=== PATIENT | female | born 1960 | race Caucasian/White ===

== ENCOUNTER 2019-06-04 12:15 | Day surgery (SDC) | payer OTHER, MEDICARE, SELFPAY ==
[2019-06-04 12:28] VITALS: BP 136/74; PULSE 88; RESP 16; TEMP 36.5; O2SAT 100; BMI 21.6
[2019-06-04] MEDS: Lactated Ringers 1,000 ML 100 ML IV (12:37)
--- NOTE | 2019-06-04 13:40 | PCM.DC.URO ---
Discharge Diet: Light diet - advance as tolerated Discharge Activity: Return to Normal Activity Call your doctor if you observe: Fever of 101 or Higher Suture Line Care: Avoid Pulling/Pushing, Avoid Pinching/Bending Allergies/Adverse Reactions: Allergies morphine Allergy (Verified 06/04/19 12:16) Hives Medications to take at Discharge Botox 40 unit SQ X1 06/03/19 Buprenorphine 20 Mcg/Hr [Butrans 20 Mcg/Hr] 1 ea TOPICAL QWEEK 06/03/19 Cyclobenzaprine HCl 10 mg PO BID PRN 06/03/19 Fremanezumab-Vfrm [Ajovy] 225 mg SQ X1 06/03/19 Ibuprofen [Advil] 200 mg PO PRN PRN 06/03/19 Ketorolac Tromethamine [Sprix] 1 ea NS PRN PRN 06/03/19 Naloxegol Oxalate [Movantik] 12.5 mg PO DAILY 06/03/19 Topiramate [Topamax] 200 mg PO BID 06/03/19 Ciprofloxacin [Cipro] 500 mg PO BID #6 tab 06/04/19 Hydrocodone/Acetaminophen [[place] 5-325 Tablet] 1 each PO Q4H PRN PRN 5 Days #14 tablet 06/04/19 The following prescriptions were given: Ciprofloxacin [Cipro] 500 mg PO BID #6 tab Transmission Status: Pending to [address] Hydrocodone/Acetaminophen [[place] 5-325 Tablet] 1 each PO Q4H PRN PRN 5 Days #14 tablet PRN Reason: Pain Score 1-10/10 Transmission Status: Received by [address] Primary Care Physician: Evelyn Gallardo DO [Primary Care Provider] - Test Results: Test results from this visit will be discussed in further detail at your follow-up appointment, if applicable. Please Follow Up With: Nacho Pop MD When: please call to make an appointment.
[2019-06-04] MEDS: Cefazolin 2 GM in 0.9% Normal Saline 100 ML IV (13:47)
--- NOTE | 2019-06-04 13:48 | OP.PCM_ITS ---
Problem List (1) Left obstructing ureteral calculi Status: Acute Report of Operation Date of Procedure: 06/04/19 Pre-Operative Diagnosis: Left obstructing ureteral calculi Post-Operative Diagnosis: Same Surgery/Procedure Performed:: Cystoscopy, retrograde pyelogram, interpretation fluoroscopic images, balloon dilation of left ureter, ureteroscopy laser of stone and stent. Description of Surgical Findings:: Patient presented to the hospital for treatment of a calculus 5 millimeters in size in the left ureter. We discussed how the procedure is done what to expect afterwards he probably will need a stent. We discussed the discomfort that the stent would cause, burning with urination, frequency, urgency, pain in the kidney, blood in the urine. We also discussed the risk of the procedure including bleeding and infection and the risk of anesthesia. We discussed the very rare risk of injury or scar tissue development in the ureter after this procedure. We also discussed the possibility that the stone would not be able to be treated completely and he may need multiple procedures. Patient was offered a course of conservative management however she called back to the office with having severe pain and wished to proceed with surgery. After discussion with the patient in the preoperative area also I saw the patient in the office discussing the same outcomes the patient signed the consent form, and all the patient's questions were answered. The patient was taken back to the operating room after smooth induction of general anesthesia and the patient was placed supine on the table. We then repositioned the patient in dorsolithotomy position with the legs in stirrups. We made sure all his pressure points were padded. The patient had SCDs on for DVT prophylaxis and was loaded with IV antibiotics prior to the procedure. Imaging was reviewed from outside hospital. I went into the bladder with a 21 Armenian rigid cystoscopy ureteroscopy after gentle dilation of the urethra. The urethra findings were normal . Inside the bladder the trigone was inspected left and right velasquez of the bladder and posterior and dome of the bladder was inspected and the main findings in the bladder was . I then cannulated the ureter and used a wire to go up to the ureter then over the wire I performed balloon dilation of the distal ureter with a ureteral balloon dilator, the balloon dilator size was 12 Armenian . I then left the wire in place and next to wire I went up with a ureteroscope. I was able to reach the stone successfully and then lasered the stone using a laser fiber and perform laser lithotripsy on the stone until the stone broke up into tiny fragments. After successful complete lasering of the stone and its fragments then I worked my way out of the ureter and over the wire I then loaded up a stent and advanced a stent up into the kidney. A retrograde pyelogram was then performed looking at the contrast images to assist in placement of the stent next and confirmed the location of the kidney and the ureter I then pulled on the wire and the stent coiled in the kidney and bladder in good position. I then drained the bladder with the cystoscope the patient's anesthetic was reversed he will be given pain medicine antibiotics and instructions to call the office for an appointment to remove the stent. Patient's anesthetic is being reversed and is taken back to the PACU in stable condition. Type of Anesthesia:: General Drains: Left stent - Admit VTE Documentation VTE Present on Admission: No VTE Mechan Device Prophylaxis: SCD's
[2019-06-04 14:30] VITALS: BP 124/81; BP 136/74; PULSE 96; RESP 16; TEMP 36.3; O2SAT 99
[2019-06-04 14:45] VITALS: BP 123/67; BP 136/74; PULSE 78; RESP 16; O2SAT 96
[2019-06-04] MEDS: Ketorolac 15 MG/ML Vial IV (14:58)
[2019-06-04 15:00] VITALS: BP 128/78; BP 136/74; PULSE 79; RESP 16; O2SAT 100
[2019-06-04 15:15] VITALS: BP 122/80; BP 136/74; PULSE 81; RESP 16; TEMP 36.4; O2SAT 100
[2019-06-04 16:16] VITALS: BP 136/74
== END 2019-06-04 16:19 | disposition home or self-care (01) ==
LOC: SDC 12:16 → AC 12:16
PROVIDERS: PCP Internal Medicine; Referring Provider Urology; Visit Provider Urology
PROC: 0TJ98ZZ Inspection of Ureter, Via Natural or Artificial Opening Endoscopic (ICD-10-PCS; CPT 52352; principal; 2019-06-04 13:50)
DX: N20.1 Calculus of ureter (principal); Z87.442 Personal history of urinary calculi; G43.909 Migraine, unspecified, not intractable, without status migrainosus
CPT/HCPCS: 52356; 76000; J7120; C1726; C1769; C2617; J2405

== ENCOUNTER 2020-10-12 11:00 | Outpatient (RCR) | payer SELFPAY ==
--- NOTE | 2021-02-22 12:52 | HP.PT.NRP ---
MARSHAL Arash COREA was seen in my office for initial evaluation on . The following Plan of Care was established for this patient: This patient was last seen in our office 10/12/20. Pertinent comments regarding their Physical therapy will appear below: Pt. was seen in PT for self pay DN for her chronic head aches. Pt. has not been seen in several months and will be DC from PT at this point in time. At this point I will be discontinuing this patient from physical therapy. I would be happy to see this patient again in the future if found appropriate by the physician. Thank you! Joshua Tan, ELDERT
== END 2020-10-12 19:00 | disposition home or self-care (01) ==
LOC: PT 11:00
PROVIDERS: PCP Internal Medicine; Referring Provider Nurse Practitioner Family; Visit Provider Nurse Practitioner Family
DX: R51.9 Headache, unspecified (principal)

== ENCOUNTER 2020-11-11 06:05 | Day surgery (SDC) | payer OTHER, MEDICARE, SELFPAY ==
[2020-11-11] VITALS (8 sets, daily range): BP systolic 110–129; BP diastolic 66–82; PULSE 77–96; RESP 16; TEMP 35.9–37.2; O2SAT 92–97; BMI 22.5
[2020-11-11] MEDS: Lactated Ringers 1,000 ML 100 ML IV ×2 (06:51→08:33)
[2020-11-11 06:53] LABS: Hematocrit 44.2 % (37-47); Hemoglobin 14.1 g/dL (12.0-15.0); Mean Corp Hgb Conc 31.9 g/dL (32-36); Mean Corpuscular Volume 90.9 fL (81-99); Mean Platelet Vol. 11.2 fl (6.2-12.0); Platelet Count 211 K/mm3 (150-450); RBC Distribution Width CV 13.6 % (11.6-14.6); RBC Distribution Width SD 46.4 fl (35.1-43.9); Red Blood Count 4.86 M/mm3 (4.2-5.4); White Blood Count 3.9 K/mm3 (4.4-11.0)
[2020-11-11 07:06] LABS: Anion Gap 6 (5-15); BUN 20 mg/dL (7-18); BUN/Creat Ratio 21.8 RATIO (10-20); Calcium,Total 9.3 mg/dL (8.5-10.1); Chloride 106 mmol/L (98-107); Creatinine, Serum 0.92 mg/dL (0.55-1.02); EST Glomerular Filtration Rate 67 mL/min (>60); Est Glom Filt Rate - Afr Amer 81 mL/min (>60); Estimated Creatinine Clearance 68.06 ml/min; Glucose 102 mg/dL (74-106); Potassium 3.8 mmol/L (3.5-5.1); Sodium Level 140 mmol/L (136-145)
--- NOTE | 2020-11-11 07:34 | HP.PCM_ITS ---
HPI - General HPI Narrative MARSHAL COREA, is a 59 F who presents for management of right ureteral stone and pain. [facility] Medical History (Updated 11/11/20 @ 07:[address] Brenda Hdez MD) Anxiety Depression Excessive bleeding History of edema History of ulceration Injury of head and neck Kidney stones Leg cramps Migraine headache Right ureteral calculus Wears contact lenses Wears dentures Wears glasses Home Medications Botox 40 unit SQ .Q3 MONTHS 06/03/19 [History Last Taken Unknown] buprenorphine 1 ea TOPICAL QWEEK 06/03/19 [History Last Taken Unknown] cyclobenzaprine 10 mg PO BID PRN 06/03/19 [History Last Taken Unknown] fremanezumab-vfrm 225 mg SQ QMONTH 06/03/19 [History Last Taken Unknown] ibuprofen 200 mg PO PRN PRN 06/03/19 [History Last Taken Unknown] cephalexin 500 mg PO TID 11/10/20 [History Last Taken Unknown] ondansetron HCl 0.4 mg PO PRN PRN 11/10/20 [History Last Taken Unknown] oxycodone-acetaminophen 1 tab PO Q6H PRN PRN 11/10/20 [History Last Taken Unknown] tamsulosin 0.4 mg PO DAILY 11/10/20 [History Last Taken Unknown] ubrogepant [Ubrelvy] 100 mg PO PRN PRN 11/10/20 [History Last Taken Unknown] Allergy/AdvReac Type Severity Reaction Status Date / Time morphine Allergy Hives Verified 11/10/20 08:37 Surgical History Hx of appendectomy Hx of breast augmentation Hx of section Hx of colonoscopy Hx of cystoscopy Hx of fusion of cervical spine Hx of sinus surgery Hx of tubal ligation Social History Smoking Status: Never smoker ROS Constitutional Constitutional: Reports systems reviewed and no addt'l complaints, except as documented Eyes Eyes: Reports systems reviewed and no addt'l complaints, except as documented ENT HEENT: Reports systems reviewed and no addt'l complaints, except as documented Cardiovascular Cardiovascular: Reports abdominal pain; Denies chest pain at rest or flutter in chest Respiratory/Chest Respiratory/Chest: Denies dry cough, dyspnea or tachypnea Gastrointestinal Gastrointestinal: Reports abdominal pain, cramping and dry heaves Genitourinary Genitourinary: Reports flank pain and urinary urgency; Denies hematuria or urinary hesitancy Musculoskeletal Musculoskeletal: Reports systems reviewed and no addt'l complaints, except as documented Integumentary Integumentary: Reports systems reviewed and no addt'l complaints, except as documented Neurologic Neurologic: Reports systems reviewed and no addt'l complaints, except as documented Psychiatric Psychiatric: Reports systems reviewed and no addt'l complaints, except as documented Endocrine Endocrinology: Reports systems reviewed and no addt'l complaints, except as documented Hematologic/Lymphatic Hematologic/Lymphatic: Reports systems reviewed and no addt'l complaints, except as documented Vital Signs Vital Signs Vital Signs: 11/11/20 06:47 11/11/20 06:52 Temperature 98.3 F Temperature Source Temporal Pulse Rate 91 Respiratory Rate 16 Respiratory Pattern Normal Blood Pressure 124/82 H Blood Pressure Mean 96 Blood Pressure Source Monitor Blood Pressure Position Semi-Fowlers Blood Pressure Location Left Arm Pulse Ox 92 Oxygen Delivery Method Room Air Weight Weight: 67.3 kg Body Mass Index (BMI) 22.5 Physical Exam Const alert, oriented x3 and no apparent distress HEENT normocephalic and head/scalp atraumatic Eyes conjunctivae normal and no scleral icterus Neck supple General: trachea midline Lymph Lymphatic: no lymphedema noted Chest inspection of chest normal Chest: symmetrical chest wall rise Resp normal respiratory effort, normal air movement, no retractions and no use of accessory muscles Cardio regular rate and regular rhythm GI soft to palpation, non-tender and non-distended external exam normal Back/Spine General Back: CVA tenderness right Extremity normal to inspection Skin no rashes or lesions noted Neuro oriented x3, CN's II-XII intact bilaterally and moves all extremities Psych mental status grossly normal, thought process normal, cooperative and affect normal Results Lab / Micro Data Result Diagrams: 11/11/20 06:40 11/11/20 06:40 Labs: Laboratory Results - last 24 hr 11/11/20 06:40: WBC 3.9 L, RBC 4.86, Hgb 14.1, Hct 44.2, MCV 90.9, MCH 29.0, MCHC 31.9 L, RDW Std Deviation 46.4 H, RDW Coeff of Nelda 13.6, Plt Count 211, MPV 11.2 11/11/20 06:40: Sodium 140, Potassium 3.8, Chloride 106, Carbon Dioxide 28.0, Anion Gap 6, BUN 20 H, Creatinine 0.92, Estim Creat Clear Calc 68.06, Est GFR (MDRD) Af Amer 81, Est GFR (MDRD) Non-Af 67, BUN/Creatinine Ratio 21.8 H, Glucose 102, Calcium 9.3 Micro: Microbiology 11/11/20 06:30 Nasal Secretion SARS-CoV-2 Antigen (Rapid) - Final Assessment & Plan Assessment/Plan (1) Right ureteral calculus: PLAN: proceed with cystoscopy, right ureteroscopy, laser lithotripsy and right ureteral stent insertion. Informed consent obtained.
[2020-11-11] MEDS: Cefazolin 2 GM in 0.9% Normal Saline 100 ML IV (07:35)
--- NOTE | 2020-11-11 07:39 | OP.PCM_ITS ---
Problems Associated Problem List Diagnoses (1) Right ureteral calculus: Report of Operation Date of Procedure: 11/11/20 Pre-Operative Diagnosis: right ureteral stone Post-Operative Diagnosis: same Surgery/Procedure Performed:: cystoscopy, right ureteroscopy, right ureteral stent insertion Surgeon: Brenda Hdez Type of Anesthesia: General Description of Procedure: The patient is a 59-year-old female presenting for surgical intervention for a right ureteral calculus. Informed consent was obtained. The patient was taken to the operating room and placed on the operating room table. Anesthesia monitored the head, neck, airway, IV access and vital signs throughout the case. Once anesthesia was appropriately administered the patient was placed into dorsal lithotomy position and was prepped and draped in usual sterile fashion. The cystoscope was inserted through the urethra under direct visualization into the urinary bladder. The bladder mucosa was visualized in its entirety and found to be void of erythema, mass or foreign body. At this time the right ureteral orifice was located in the area of the trigone and was intubated with a 0.035 Glidewire. A second Glidewire was then passed alongside of the first. The flexible ureteroscope was passed over one of the wires and was unable to achieve access to the mid ureter or the calculus. A second attempt with a SlimLine semirigid ureteroscope was then made and this also was unable to achieve access to the stone. The decision was made to place a ureteral stent and return for ureteroscopy. A 6 Tanzanian 26 cm JJ stent was passed over the safety wire and good curling position was obtained in the renal pelvis as well as the urinary bladder. The patient's bladder was then emptied and the case was terminated. The patient tolerated the procedure without complication. She was taken to the recovery room in good condition. Grafts/Implants Used: 6x26 JJ stent Complications none Admit VTE Documentation VTE Present on Admission: Yes VTE Mechan Device Prophylaxis: SCD's VTE Pharm Prophylaxis ordered?: No Reason prophylaxis not ordered:: Treatment Not Indicated
--- NOTE | 2020-11-11 07:40 | PCM.DC ---
Discharge Instructions Diet Discharge Diet: No restrictions Activity Discharge Activity: Return to Normal Activity May resume sexual activity in: 1-2 weeks Dressing / Incision Call your doctor if you observe: Fever of 101 or Higher, Inability to urinate, Inability to have a bowel movement and Uncontrolled pain Follow Up Care Please Follow Up With: Brenda Hdez MD When: the office will call patient to schedule the next procedure for 2-3 weeks from now Test Results: Test results from this visit will be discussed in further detail at your follow-up appointment, if applicable. Discharge Plan Admission Attending Provider: Brenda Hdez Primary Care Provider: Evelyn Gallardo Discharge Orders/Prescriptions Prescriptions: Continued cyclobenzaprine 10 MG tablet 10 mg PO BID PRN (Reason: Spasms) RF: 0 ibuprofen 200 MG capsule 200 mg PO PRN PRN (Reason: Pain Or Fever) RF: 0 buprenorphine 1 EACH patch weekly 1 ea topical QWEEK RF: 0 fremanezumab-vfrm 225 MG/1.5 ML syringe 225 mg SQ QMONTH RF: 0 Botox 40 unit SQ .Q3 MONTHS RF: 0 ondansetron HCl 4 mg tablet 0.4 mg PO PRN PRN (Reason: Nausea) RF: 0 oxycodone-acetaminophen 5-325 mg tablet 1 tab PO Q6H PRN PRN (Reason: Pain) RF: 0 cephalexin 500 mg capsule 500 mg PO TID RF: 0 Ubrelvy 100 mg tablet 100 mg PO PRN PRN (Reason: MIGRAINES) RF: 0 Discontinued tamsulosin 0.4 mg capsule 0.4 mg PO DAILY RF: 0 Referrals / Follow Up: Evelyn Gallardo DO [Primary Care Provider] - Disposition Disposition (needs filled in before D/C Order can be placed): Home, Self Care
[2020-11-11] MEDS: HYDROcodone Bitartrate/Apap 5/325 Tablet PO (10:01)
[2020-11-11] MEDS: Ketorolac 30 MG/ML Syringe IV (10:01)
== END 2020-11-11 10:44 | disposition home or self-care (01) ==
LOC: SDC 06:16 → AC 06:17
PROVIDERS: PCP Internal Medicine; Referring Provider Urology; Visit Provider Urology
PROC: 0TJ98ZZ Inspection of Ureter, Via Natural or Artificial Opening Endoscopic (ICD-10-PCS; CPT 52352; principal; 2020-11-11 07:20)
DX: N20.1 Calculus of ureter (principal); F41.9 Anxiety disorder, unspecified; F32.9 Major depressive disorder, single episode, unspecified; Z79.899 Other long term (current) drug therapy
CPT/HCPCS: 00910; 52332; 76000; 80048; 85027; 87426; J7120; C2617; J2405

== ENCOUNTER 2020-11-26 11:00 | Day surgery (SDC) | payer OTHER, MEDICARE, SELFPAY ==
[2020-11-26] VITALS (10 sets, daily range): BP systolic 99–125; BP diastolic 61–89; PULSE 78–90; RESP 16; TEMP 35.9–37; O2SAT 95–100; BMI 22.4
[2020-11-26] MEDS: Lactated Ringers 1,000 ML 100 ML IV ×2 (11:28→14:40)
--- NOTE | 2020-11-26 12:11 | OP.PCM_ITS ---
Problems Associated Problem List Diagnoses (1) Right ureteral calculus: Report of Operation Date of Procedure: 11/26/20 Pre-Operative Diagnosis: Right ureteral calculus Post-Operative Diagnosis: Same Surgery/Procedure Performed:: Cystoscopy, right ureteroscopy, Holmium laser lithotripsy, stone basket extraction, right ureteral stent change Surgeon: Brenda Hdez Type of Anesthesia: General Specimen's removed: Stone fragments Description of Procedure: The patient is a 60-year-old female who had a ureteral stent inserted for a ureteral calculus a few weeks ago. She now presents for definitive management of her ureteral calculus. Informed consent was obtained. The patient was taken to the operating room and placed on the operating room table. Anesthesia monitored the head, neck, airway, IV access and vital signs throughout the case. Once anesthesia was appropriate ministered, the patient was placed into dorsal lithotomy position was prepped and draped in usual sterile fashion. At this time the cystoscope was inserted through the urethra under direct visualization into the urinary bladder. A 0.035 Glidewire was passed alongside the indwelling right ureteral stent. The bladder mucosa revealed no abnormalities other than some edema surrounding the stent. The stent was then grasped with grasping forceps and pulled to the meatus where a another 0.035 Glidewire was passed through the stent with positioning in the renal pelvis is seen on fluoroscopy. At this time the flexible ureteroscope was placed over one of the wires leaving 1 as a safety wire. Access to the ureter was easily obtained. The ureteroscope was used to evaluate the entire length of the ureter and into the renal pelvis revealing no stone aside from a 4 mm distal ureteral calculus. The stone was fragmented into smaller pieces using a 270 ?m laser fiber. Using a 2.4 Luxembourgish stone basket, the pieces were retrieved and sent for analysis. After removal of the pieces, the cystoscope was reinserted through the urethra and used to place a 6 Luxembourgish 26 cm JJ stent over the safety wire. Good curling was achieved in the renal pelvis as well as the urinary bladder. Patient's bladder was then emptied and the case was terminated. She was awakened and taken to the recovery room in good condition. There were no complications during this procedure. Grafts/Implants Used: [id number] stent Complications None Admit VTE Documentation VTE Present on Admission: Yes VTE Mechan Device Prophylaxis: SCD's Reason prophylaxis not ordered:: Treatment Not Indicated
--- NOTE | 2020-11-26 12:14 | PCM.DC ---
Discharge Instructions Diet Discharge Diet: No restrictions Activity Discharge Activity: Return to Normal Activity and May Not Drive (While on narcotics) Dressing / Incision Call your doctor if you observe: Fever of 101 or Higher, Inability to urinate, Inability to have a bowel movement and Uncontrolled pain Follow Up Care Please Follow Up With: Brenda Hdez MD When: In 2 weeks for stent removal, call office for appointment Test Results: Test results from this visit will be discussed in further detail at your follow-up appointment, if applicable. Discharge Plan Admission Attending Provider: Brenda Hdez Primary Care Provider: Evelyn Gallardo Discharge Orders/Prescriptions Prescriptions: New cephalexin [cephalexin] 500 MG capsule 500 mg PO Q12 3 Days Qty: 6 RF: 0 oxycodone-acetaminophen [Percocet] 5-325 mg tablet 1 tab PO Q8H PRN (Reason: pain) 5 Days Qty: 10 RF: 0 Continued cyclobenzaprine 10 MG tablet 10 mg PO BID RF: 0 ibuprofen 200 MG capsule 200 mg PO PRN PRN (Reason: Pain Or Fever) RF: 0 buprenorphine 1 EACH patch weekly 1 ea topical QWEEK RF: 0 fremanezumab-vfrm 225 MG/1.5 ML syringe 225 mg SQ QMONTH RF: 0 Botox 40 unit SQ .Q3 MONTHS RF: 0 ondansetron HCl 4 mg tablet 0.4 mg PO PRN PRN (Reason: Nausea) RF: 0 Ubrelvy 100 mg tablet 100 mg PO PRN PRN (Reason: MIGRAINES) RF: 0 oxycodone-acetaminophen 5-325 mg tablet 1 tab PO Q6H PRN PRN (Reason: Pain) 5 Days Qty: 10 RF: 0 Referrals / Follow Up: Evelyn Gallardo DO [Primary Care Provider] - Disposition Disposition (needs filled in before D/C Order can be placed): Home, Self Care
[2020-11-26] MEDS: Cefazolin 2 GM in 0.9% Normal Saline 100 ML IV (12:18)
--- NOTE | 2020-11-26 12:40 | CALC_PTH ---
PATIENT: MARSHAL COREA LOC: [facility] [place] U#:[id number] AGE/SX: 60/F ROOM: RE11/26/[address]: Dr. Brenda Hdez MD : 1960 BED: DIS: 11/26/2020 SPEC #: [id number] RECD: 11/26/20 13:28 STATUS: NEELA VICENTE #: [id number] MARYELLEN: 11/26/20 12:[address]: Brenda Hdez DEPT: SURGICAL PATHOLOGY RECD BY: Wilbert Bunn ENTERED: 11/26/20 13:29 SP TYPE: Calculi OTHR DR: Dr. Evelyn Gallardo, Tissues: CALCULI Procedures: Surgery Specimen Level I HEADER OPERATION: Cysto, ureteroscopy, laser, stent change PRE-OP DIAGNOSIS: Right ureteral calculus TISSUE SUBMITTED: Right ureteral calculus GROSS DIAGNOSIS Right ureteral calculus, removal (gross diagnosis only): Unremarkable calculus. AM:errol 11/29/2020 COMMENT The calculus is submitted in its entirety for chemical stone analysis. The results from this study will be reported separately. GROSS DESCRIPTION Received without fixative labeled with the patient's name and designated right ureteral calculus. The specimen consists of a single irregular fragment of rand calculus measuring 0.2 x 0.1 x <0.1 cm. The entire specimen is submitted for stone analysis. / AM:errol 11/26/2020 CPT: 63517
[2020-11-26] MEDS: oxyCODONE 5 MG Tablet PO (15:14)
[2020-11-26] MEDS: Acetaminophen 325 MG Tablet PO (15:14)
[2020-12-02 15:46] LABS: Source RIGHT URETER
== END 2020-11-26 15:43 | disposition home or self-care (01) ==
LOC: SDC 11:00 → AC 11:01
PROVIDERS: PCP Internal Medicine; Referring Provider Urology; Visit Provider Urology
PROC: 0TJ98ZZ Inspection of Ureter, Via Natural or Artificial Opening Endoscopic (ICD-10-PCS; CPT 52352; principal; 2020-11-26 12:30)
DX: N20.1 Calculus of ureter (principal); F41.9 Anxiety disorder, unspecified; F32.9 Major depressive disorder, single episode, unspecified; Z79.899 Other long term (current) drug therapy
CPT/HCPCS: 00918; 52356; 76000; 82360; 87426; 88300; C9803; J7120; C2617; J2405

== ENCOUNTER → 2021-08-24 | Outpatient (CLI) | payer OTHER, MEDICARE, SELFPAY ==
[2021-08-24 16:26] LABS: ALB/GLOB Ratio 1.2 RATIO (0.9-2.4); AST(SGOT) 28 U/L (15-37); Absolute Lymphocyte Count 1.51 X10^3/uL (0.83-4.51); Absolute Neutrophil Count 2.9 X10^3/uL (2.0-7.7); Alanine Aminotransfer ALT/SGPT 37 U/L (13-56); Albumin, Serum 4.2 g/dL (3.2-5.0); Alkaline Phosphatase 83 U/L (45-117); Anion Gap 4 (5-15); BUN 18 mg/dL (7-18); BUN/Creat Ratio 16.2 RATIO (10-20); Basophil# 0.05 X10^3/uL; CPK Total, Creatine Kinase 76 U/L (26-192); Calcium,Total 9.4 mg/dL (8.5-10.1); Chloride 108 mmol/L (98-107); Creatinine, Serum 1.11 mg/dL (0.55-1.02); EST Glomerular Filtration Rate 54 mL/min (>60); Eosinophil# 0.17 X10^3/uL; Eosinophils% 3.4 % (0-5); Est Glom Filt Rate - Afr Amer 65 mL/min (>60); Globulin 3.4 g/dL (2.2-4.2); Glucose 88 mg/dL (74-106); Hematocrit 46.5 % (37-47); Lymphocyte # 1.51 X10^3/ul (0.83-4.51); Lymphocyte % 30.1 % (19-41); Mean Corp Hgb Conc 32.3 g/dL (32-36); Mean Corpuscular Hgb 29.6 pg (27.0-32.0); Mean Corpuscular Volume 91.9 fL (81-99); Mean Platelet Vol. 11.2 fl (6.2-12.0); Monocyte# 0.37 X10^3/uL; Monocyte% 7.4 % (0-10); NRBC Flagged by Analyzer 0 % (0-5); Neutrophil # 2.91 X10^3/uL (2.7-7.7); Neutrophil % 57.9 % (47-70); Platelet Count 225 K/mm3 (150-450); Potassium 3.7 mmol/L (3.5-5.1); Protein, Total 7.6 g/dL (6.4-8.2); RBC Distribution Width CV 12.6 % (11.6-14.6); RBC Distribution Width SD 42.5 fl (35.1-43.9); Red Blood Count 5.06 M/mm3 (4.2-5.4); Sodium Level 141 mmol/L (136-145); Troponin-I HS 3 pg/mL (3.0-54.0)
== END | disposition home or self-care (01) ==
LOC: MTLAB 15:28
PROVIDERS: PCP Internal Medicine; Referring Provider Internal Medicine; Visit Provider Internal Medicine
DX: R07.9 Chest pain, unspecified (principal)
CPT/HCPCS: 36415; 80053; 82550; 84484; 85025

== ENCOUNTER → 2022-06-17 | Outpatient (CLI) | payer BC, MEDICARE, SELFPAY ==
--- NOTE | 2022-06-17 09:49 | CT_ITS ---
STUDY: CT ABDOMEN AND PELVIS WITHOUT CONTRAST REASON FOR EXAM: Female, 61 years old. PAIN RADIATION DOSAGE (If Supplied By Facility): CTDIvol = ( 6.23 ) mGy, DLP = ( 309.52 ) mGycm TECHNIQUE: Transaxial images were obtained from the dome of the diaphragm to the symphysis pubis without oral contrast, and without intravenous contrast. Sagittal and coronal images were reconstructed. Individualized dose optimization techniques were used for this CT. COMPARISON: None. FINDINGS: The visualized lung bases are unremarkable. The visualized portions of the heart are within normal limits. Normal liver. Normal gallbladder and extrahepatic biliary system. Normal spleen. Normal pancreas. Normal bilateral adrenal glands. Minimal left hydronephrosis and hydroureter without perinephric or periureteral inflammatory stranding. Findings I suspect are due to a 2 mm stone in the distal left ureter seen on axial image 149 and coronal recon image 72. Nonobstructing right nephrolithiasis Normal visualized stomach. Normal small intestine. Normal colon. There is non-visualization of the appendix. Subtle hyperdensities within the small and large bowel loops likely represent ingested medication. Normal abdominal aorta. Normal inferior vena cava. Normal retroperitoneum. Normal urinary bladder. Uterus is present, the endometrium cannot be accurately evaluated with CT. No suspicious cystic mass or free fluid. Normal abdominal wall. There are diffuse degenerative changes of the visualized lumbar spine, and pelvis. CT/Abdomen/Pelvis without Cont IMPRESSION: Mild left hydronephrosis and hydroureter without associated inflammation. Findings I suspect are due to a 2 mm stone in the distal left ureter seen on images just above. Nonobstructing right nephrolithiasis Retained stool throughout the colon Scattered hyperdensities within small and large bowel loops likely represent ingested medication Electronically Signed: Peña Hanna MD at 10:57 EDT ,
== END | disposition home or self-care (01) ==
LOC: CT 09:47
PROVIDERS: PCP Internal Medicine; Visit Provider Urology
DX: N20.1 Calculus of ureter (principal)
CPT/HCPCS: 74176

== ENCOUNTER → 2023-04-12 | Outpatient (CLI) | payer BC, MEDICARE, SELFPAY ==
--- NOTE | 2023-04-12 13:09 | CT_ITS ---
STUDY: CT ABDOMEN AND PELVIS WITHOUT CONTRAST REASON FOR EXAM: Female, 62 years old. 2 week history of left-sided abdominal pain. RADIATION DOSAGE (If Supplied By Facility): CTDIvol = ( 6.65 ) mGy, DLP = ( 332.22 ) mGycm TECHNIQUE: Transaxial images were obtained from the dome of the diaphragm to the symphysis pubis without oral contrast, and without intravenous contrast. Sagittal and coronal images were reconstructed. Individualized dose optimization techniques were used for this CT. COMPARISON: Comparison is made with prior study dated June 17, 2022. FINDINGS: The visualized lung bases are unremarkable. The visualized portions of the heart are within normal limits. There is an 8.4 mm cyst in the anterior aspect of the left lobe of liver. This is unchanged. Normal gallbladder and extrahepatic biliary system. Normal spleen. Normal pancreas. There is a small, circumscribed, smooth, low attenuation left adrenal mass, consistent with an adrenal adenoma. This measures 8.8 mm. Normal right adrenal gland. 3 mm nonobstructive calculus in the upper pole calyx of the right kidney. Normal left kidney. There is a small hiatal hernia. Normal small intestine. Large amount of fecal material is seen in the colon. The patient is status post appendectomy. Normal abdominal aorta. Normal inferior vena cava. Normal retroperitoneum. Normal urinary bladder. There is a small umbilical hernia containing fat. Calcified injection granuloma overlying the right buttock. This space narrowing at the L5-S1 level. CT/Abdomen/Pelvis without Cont IMPRESSION: 8.4 mm cyst in the left lobe of the liver. This is unchanged. Stable 8.8 mm adenoma in the left adrenal gland. Large amount of fecal material is seen in the colon. 3 mm nonobstructive calculus in the upper pole OF the right kidney. Electronically Signed: Juan Carlos Agosto MD at 13:35 EST ,
== END | disposition home or self-care (01) ==
PROVIDERS: PCP Internal Medicine; Visit Provider Nurse Practitioner Family
DX: M54.9 Dorsalgia, unspecified (principal)
CPT/HCPCS: 74176